=== PATIENT | male | born 1940 | race Caucasian/White ===

== ENCOUNTER 2024-03-24 08:53 | Outpatient (CLI) | payer MEDICARE, OTHER, SELFPAY ==
--- OUTSIDE RECORDS SUMMARY | 2024-03-23 16:01 | XMS_ITS | Referral Summary ---
Author Organization [facility] Address [address] [place] [address] Care Team Providers Care Head Cashier Name Role Phone Mary Nichols APRN, C.N.P., M.S.N. Primary Ca re Provider Source Comments Patient records contain information from all sites at [facility]. For routine questions regarding patient records, call [phone] during business hours, M-F 8:00 AM - 5:00 PM Central Time. Record requests for emergency care only can be directed to [phone] at any time.[facility] Encounters Date Type Department Care Team Description 02/24/2024 Orders Only [facility] HL[facility] MNT Mary Nichols APRN, C.N.P., M.S.N. 02/12/2024 Refill Department of Family Medicine, [facility], in [place] [address] [place] [address] Mary Nichols APRN, C.N.P., M.S.N. Med Refill from Last 3 Months Allergies No known active allergies Medications pravastatin (PRAVACHOL) 40 mg tablet TAKE 1 TABLET (40 MG TOTAL)BY MOUTH AT BEDTIME. PLEASEREFILL UPON PATIENT'S REQUEST. 90 tablet 3 4 Active metFORMIN XR (GLUCOPHAGE-XR) 500 mg 24 hr tablet take 1 tablet by mouth twice a day with meals 180 tablet 3 4 Active PARoxetine (PaxiL) 10 mg tablet Take 1 tablet (10 mg total) by mouth daily. 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 Anxiety 06/06/2010 Hypertension Essential Primary 07/18/2009 Overview (08/11/2016): HTN [Hypertension] Hyperlipidemia 07/18/2009 Resolved Problems Problem Noted Date Diagnosed Date Resolved Date Hyperglycemia 08/23/2017 01/27/2019 Dyspnea NOS 04/01/2012 01/07/2021 Immunizations Name Administration Dates Next Due H1N1 All Forms 04/10/2009 Influenza TIV (IM) 04/22/2018 Influenza high dose QV(65 ye ars or older) (PF) 04/23/2023,01/16/2022,01/13/2021,2019 Influenza, Seasonal, Injectable 01/27/20 12,12/01/2010,02/22/2010,2008 Influenza, Unspecified 12/21/2016,2015,02/05/2015,2013,02/03/2013,01/27/2012,01/15/2011,1 04/25/2009,03/05/2009,01/08/2009 PCV13 12/21/2016 PPSV23 01/08/2009 RZV (SHINGRIX) 06/04/2023(Deferred: Patient aysha murphy) SARS-COV-2 (COVID-19) - MODE RNA (12 YEARS AND OLDER) Fall Seasonal 06/04/2023(Deferred: Patient Refused) SARS-COV-2 (COVID-19) - MODERNA(Discontinued) 06/25/2020,05/23/2020 Td (Adult), adsorbed 09/10/2009 Td Preservative Free (TENIVA C, DECAVAC) 09/10/2009 Tdap 01/22/2016 influenza trivalent high dos e (HD)(PF) 12/22/2018,12/21/2016,01/30/2016,2014 Social History Tobacco Use Types Packs/Day Years Used Date Smoking Tobacco: Never Smokeless Tobacco: Never Tobacco Cessation:Counseling Given: Not Answered Alcohol Use Standard Drinks/Week Comments Yes 0 (1 standard drink = 0.6 oz pur e alcohol) PHQ-2 Answer Date Recorded PHQ-2 Score 0 04/23/2023 Nutrition Answer Date Recorded Nutrition: EVOO Fat Source 13 12/04 Nutrition: Servings of Fruits/Vegetables per Day Not on file 12/05/2019 Dental Answer Date Recorded Dental: Regular Dentist Unknown 05/14/19 21 Sex and Gender Information Value Date Recorded Sex Assigned at Not on file Legal Sex Male 2:57 AM ENGRAVER STEEL PLATE Gender Identity Not on file Sexual Orientation Not on file Last Filed Vital Signs Vital Sign Reading Time Taken Comments Blood Pressure 124/74 12/10/2023 10:22 AM CDT Pulse 63 12/10/2023 10:22 AM CDT Temperature 36.5 C (97.7 F) 12/10/2023 10:22 AM CDT Respiratory Rate 20 11/27/2023 7:19 AM CDT Oxygen Saturation 97% 11/27/2023 7:45 AM CDT Inhaled Oxygen Concentration - - Weight 80.1 kg (176 lb 9.4 oz) 12/10/2023 10:22 AM CDT Height 160 cm (5' 2.99) 06/04/2023 9:41 AM CDT Body Mass Index 31.29 06/04/2023 9:41 AM CDT Plan of Treatment Upcoming Encounters Date Type Department Care Team (Late st Contact Info) Description 04/04/2024 10:30 AM ENGRAVER STEEL PLATE Office Visit Department of Family Medicine, [facility], in [place], [place] [address] [place] [phone] Lacy Thompson APRN, C.N.P., M.S.N. [address] [place] [phone] Discharge Disposition: Home or Self Care Procedures Procedure Name Priority Date/Time Associated Diagnosis Comments ALBUMIN, RANDOM, U Routine 12/10/2023 11 :47 AM CDT Diabetes Mellitus Type 2 Without Complication (HCC) Hypertension Essential Primary HEMOGLOBIN A1C, B Routine 12/10/2023 11: 01 AM CDT Diabetes Mellitus Type 2 Without Complication (HCC) BASIC METABOLIC PANEL, S/P Routine 12/10/2023 11:01 AM CDT Diabetes Mellitus Type 2 Without Complication (HCC) Hypertension Essential Primary from Last 3 Months or Most Recently Relevant to Health Maintenance Results * Albumin, Random, Urine (12/10/2023 11:47 AM CDT) Albumin, Random, U <5.0 mg/L 2023 4:35 PM CDT [facility] Comment: ----ADDITIONAL INFORMATION---- This test has been modified from the underwriting technician's instructions. Its performance characteristics were determined by [facility] in a manner consistent with CLIA requirements. This test has not been cleared or approved by the U.S. Food and Drug Administration. Creatinine 73 mg/dL 12/10/2023 4:35 PM CDT [facility] Albumin/Creatinine Ratio <7 <17 mg/g 12/10/2023 4:35 PM CDT [facility] Comment: This ratio may not correspond with the reference range because one or both of the values used to calculate the ratio was above or below the quantification limits. Urine (Urine, Voided) 12/10/2023 11:47 AM CDT 12/10/2023 3:51 PM CDT us Mary Nichols APRN, C.N.P., M.S.N. LAB URINE O RDERABLES Final Result [facility] [address] [place] [id number], [facility] in [address] [address] * (ABNORMAL) Hemoglobin A1c (12/10/2023 11:01 AM CDT) Hemoglobin A1c, B 6.6(H) 4.2 - 5.6 % 12/10/2023 11:17 AM CDT [facility] Comment: Hemoglobin A1c values greater than or equal to 6.5 percent are diagnostic for diabetes mellitus. Diagnosis should be confirmed by repeat testing. In diabetic patients, HbA1c goals should be discussed with healthcare provider. Blood (Blood, Venous) 12/10/2023 11:01 AM CDT 12/10/2023 11:01 AM CDT Jose Carlos Mckeon APRNNIsma., M.S.N. LAB BLOOD A DD-ON Final Result [facility] [address] [place] [address], [facility] in [address] [address] * (ABNORMAL) Basic Metabolic Panel (12/10/2023 11:01 AM CDT) Potassium, P 5.3(H) 3.6 - 5.2 mmol/L 12/10/2023 11:23 AM CDT [facility] Sodium, P 135 135 - 145 mmol/L 12/10/2023 11:23 AM CDT [facility] Chloride, P 103 98 - 107 mmol/L 12/10/2023 11:23 AM CDT [facility] Bicarbonate, P 25 22 - 29 mmol/L 12/10/2023 11:23 AM CDT [facility] Anion Gap, P 7 7 - 15 12/10/2023 11:23 AM CDT [facility] BUN (Blood Urea Nitrogen), P 29(H) 8 - 24 mg/dL 12/10/2023 11:23 AM CDT [facility] Creatinine 1.22 0.74 - 1.35 mg/dL 12/10/2023 11:23 AM CDT [facility] Estimated GFR (eGFR) 58(L) >=60 mL/min/BSA 12/10/2023 11:23 AM CDT [facility] Comment: Estimated GFR calculated using the 2020 CKD_EPI creatinine equation. Calcium, Total, P 9.7 8.8 - 10.2 mg/dL 12/10/2023 11:23 AM CDT [facility] Glucose, P 140 70 - 140 mg/dL 12/10/2023 11:23 AM CDT [facility] Blood (Blood, Venous) 12/10/2023 11:01 AM CDT 12/10/2023 11:01 AM CDT Jose Carlos Mckeon APRNNIsma., M.S.N. LAB BLOOD A DD-ON Final Result [facility] [address] [place] [address] [place] [address], [facility] in [place] [address] [place] [address] [place] [address] from Last 3 Months or Most Recently Relevant to Health Maintenance Insurance [employer]ICA MEDICARE Care Teams Head Cashier Relationship Specialty Start Date End Date Mary Nichols APRN, C.N.P., M.S.N. [address] [place] [address] NIESHA Toth [phone] PCP - General Family Medicine 01/27/19
--- OUTSIDE RECORDS SUMMARY | 2024-03-23 16:01 | XMS_ITS | Clinical Summary ---
Author Organization [facility] Address [place], [place] [address] Care Team Providers Care Comic Book Writer Name Role Phone Braden Couch MD Primary Care Provider [phone] Allergies No known active allergies Medications lisinopril (PRINIVIL; ZESTRIL) 20 mg tabletIndicati ons:hypertensi on Take 20 mg by mouth once daily. 0 02/06/20 15 Active pravastatin (PRAVACHOL) 80 mg tabletIndicati ons:hyperlipid emia Take 80 mg by mouth at bedtime. 0 02/06/20 15 Active omeprazole (PRILOSEC) 40 mg Delayed-Releas e capsuleIndicat ions:gastroeso phageal reflux disease Take 1 capsule by mouth. 06/30/19 17 Active metFORMIN (GLUCOPHAGE XR) 500 mg Extended-Relea se tablet Take 500 mg by mouth two times daily with meals. Active escitalopram oxalate (LEXAPRO) 10 mg tabletIndicati ons:generalize d anxiety disorder Take 10 mg by mouth. 06/08/19 18 024 Discontin ued(*Leonor ent states no longer taking) HYDROcodone-ac etaminophen, 5-325 mg, (NORCO) per tabletIndicati ons:Post-op pain Take 1 tablet by mouth every 6 hours if needed for Pain Max acetaminophen dose: 4000 mg in 24 hrs. 16 tablet 08/26/19 18 024 Discontin ued(*Leonor ent states no longer taking) Active Problems Problem Noted Date Diagnosed Date Hypertension 02/05/2015 Encounters Date Type Department Care Team Description 03/07[facility]2024 [facility] [address] [place] [address] Tasha Mccarthy NP Appointment Request 03/06/2024 12:15 PM FINAL ASSEMBLER BOAT Office Visit [facility] [address] [place] [address] Marian Ivey NP Skin Problem 03/06/2024 Travel from Last 3 Months Family History * Patient is adopted Relation Name Status Comments Father Mother Social History Tobacco Use Types Packs/Day Years Used Date Smoking Tobacco: Never Smokeless Tobacco: Never Tobacco Cessation:Counseling Given: No Alcohol Use Standard Drinks/Week Comments Yes 10 (1 standard drink = 0.6 oz pu re alcohol) beer, everyday Sex and Gender Information Value Date Recorded Sex Assigned at Not on file Legal Sex Male 5:22 AM FINAL ASSEMBLER BOAT Gender Identity Not on file Sexual Orientation Not on file Obstetrics History Last Filed Vital Signs Vital Sign Reading Time Taken Comments Blood Pressure 116/62 03/06/2024 12:28 PM FINAL ASSEMBLER BOAT Pulse 92 03/06/2024 12:28 PM FINAL ASSEMBLER BOAT Temperature 36.1 C (97 F) 03/06/2024 12:28 PM FINAL ASSEMBLER BOAT Respiratory Rate 18 03/06/2024 12:28 PM FINAL ASSEMBLER BOAT Oxygen Saturation 95% 03/06/2024 12:56 PM FINAL ASSEMBLER BOAT Inhaled Oxygen Concentration - - Weight 80.3 kg (177 lb) 03/06/2024 12:28 PM FINAL ASSEMBLER BOAT Height 165 cm (5' 4.96) 08/25/2017 7:28 AM CDT Body Mass Index 29.49 08/25/2017 7:28 AM CDT Plan of Treatment Health Maintenance Due Date Last Done Comments Tdap 1949 Depression screening for age 12+ 1950 BMI (ht and wt on same day) for age 18+ 1956 Tetanus booster 1958 Pneumococcal series for age 50+ (1 of 1 - PCV) 1988 Zoster (shingles) series for age 50+ (1 of 2) 1988 Medicare Wellness for age 65+ 2003 RSV vaccine for adults or pr egnancy (1 - 1-dose 75+ series) 2013 COVID-19 vaccine series ( season) 2023 01/28/2021, 06/25/2020, 05/23/2020 Influenza for age 65+ 11/21/2023 Insurance MEDICARE PART B HB ONLY MEDICA PRIME SOLUTION HB [id number] MR PB ONLY WORKERS COMP Advance Directives * Full Code (Latest Code Status on File) Date Activated Date Inactivated Comments 08/25/2017 7:07 AM 08/25/2017 2:22 PM Care Teams Comic Book Writer Relationship Specialty Start Date End Date Braden Couch MD [address] [place] [address] PCP - General Surgery - Urology 08/25/17
--- OUTSIDE RECORDS SUMMARY | 2024-03-23 16:01 | XMS_ITS | Encounter Summary ---
Author Organization [facility] Address [address] [place] [address] Care Team Providers Care Quality Assurance Tech Name Role Phone Mary Nichols APRN, C.NJad, M.S.N. Primary Ca re Provider Reason for Visit * Reason Comments Med Refill Encounter Details Date Type Department Care Team (Late st Contact Info) Description 02/12/2024 Refill Department of Family Medicine, [facility], in [place], [place] [address] [place] [phone] Mary Nichols APRN, C.N.P., M.S.N. [address] [place] [phone] Med Refill Social History Tobacco Use Types Packs/Day Years Used Date Smoking Tobacco: Never Smokeless Tobacco: Never Alcohol Use Standard Drinks/Week Comments Yes 0 [...] on file Legal Sex Male 2:57 AM MAT CUTTER Gender Identity Not on file Sexual Orientation Not on file documented as of this encounter Plan of Treatment Upcoming Encounters Date Type Department Care Team (Late Contact Info) Description 04/04/2024 10:30 AM MAT CUTTER Office Visit Department of Family Medicine, [facility], in [place], [place] [address] [facility] [place] [place] [address] Lacy Thompson APRN, C.N.P., M.S.N. [address] [place] [address], [place] [address] Discharge Disposition: Home or Self Care documented as of this encounter Visit Diagnoses Not on filedocumented in this encounter Additional Health Concerns Assessment Noted Time PHQ-9 Depression Total Score: 0 12/22/19 19 9:20 AM CDT documented as of this encounter Care Teams Quality Assurance Tech Relationship Specialty Start Date End Date Mary Nichols APRN, C.N.P., M.S.N. [address] [place] [address], [place] [address] PCP - General Family Medicine 01/27/19 documented as of this encounter
--- OUTSIDE RECORDS SUMMARY | 2024-03-23 16:01 | XMS_ITS | Encounter Summary ---
Author Organization [facility] Address [address] [place] [address] Care Team Providers Care Supervisor Crack Off Name Role Phone Mary Nichols APRN, C.N.P., M.S.N. Primary Ca re Provider Reason for Referral * Outpatient (Routine) - Authorized Specialty Diagnoses / Procedures Referred By Contac t Referred To Contact Family Medicine Mary Nichols APRN, C.N.P., M.S.N. [address] [place] [address] Phone: tel: fax: [facility] Region Referral ID Status Reason Start Date Expiration Date V isits Requested Visits Authorized [id number] Authorized 02/24/2024 08/25/2025 1 1 Scheduling Instructions Nurse AWV Do not schedule prior to due date to ensure insurance coverage Visit: Medicare Annual Wellness Never done. AL HYGIENE ADMINISTRATIVE ASSISTANT Encounter Details Date Type Department Care Team ([facility] st Contact Info) Description 02/24/2024 Orders Only [facility] PCP HLTH MNT Mary Nichols APRN, C.NJad, M.S.N. [address] [place] [address] Social History Tobacco Use Types Packs/Day Years [...] on file Legal Sex Male 2:57 AM DENTAL HYGIENE ADMINISTRATIVE ASSISTANT Gender Identity Not on file Sexual Orientation Not on file documented as of this encounter Plan of Treatment Upcoming Encounters Date Type Department Care Team (Late st Contact Info) Description 04/04/2024 10:30 AM DENTAL HYGIENE ADMINISTRATIVE ASSISTANT Office Visit Department of Family Medicine, [facility], in [place], [place] [address] [place] [address] Lacy Thompson APRN, C.N.P., M.S.N. [address] [place] [phone] Discharge Disposition: Home or Self Care Scheduled Referrals Name Type Priority Associated Diagnoses Orde r Schedule Family Medicine nurse visit (clinic) Outpatient Referral Routine Expected: 03/23/2024, Expires: 08/22/2024 documented as of this encounter Visit Diagnoses Not on filedocumented in this encounter Additional Health Concerns Assessment Noted Time PHQ-9 Depression Total Score: 0 12/22/19 19 9:20 AM CDT documented as of this encounter Care Teams Supervisor Crack Off Relationship Specialty Start Date End Date Mary Nichols APRN, C.N.P., M.S.N. [address] [place] [phone] PCP - General Family Medicine 01/27/19 documented as of this encounter
--- OUTSIDE RECORDS SUMMARY | 2024-03-23 16:01 | XMS_ITS ---
Author Organization [facility] Address [address] [place] [address] Care Team Providers Care Supervisor Denture Department Name Role Phone Unavailable Unavailable Unavailable Surgery Details Not on file Complications Check Surgery Details section. Procedure Estimated Blood Loss Check Surgery Details section. Procedure Findings Check Surgery Details section. Procedure Specimens Taken Check Surgery Details section.
--- OUTSIDE RECORDS SUMMARY | 2024-03-23 16:01 | XMS_ITS | Clinical Summary ---
Author Organization [facility] Address [address] [place] [address] Care Team Providers Care Kindergarten Assistant Name Role Phone Mary Nichols APRN C.N.Brooklynn, M.S.N. Primary Ca re Provider Source Comments Patient records contain information from all sites at [facility]. For routine questions regarding patient records, call [phone] during business hours, M-F 8:00 AM - 5:00 PM Central Time. Record requests for emergency care only can be directed to [phone] at any time.[facility] Allergies No known active allergies Medications pravastatin [...] Hyperglycemia 08/23/2017 01/27/2019 Dyspnea NOS 04/01/2012 01/07/2021 Encounters Date Type Department Care Team Description 02/24/2024 Orders Only [facility] PCP HLTH MNT Mary Nichols APRN, C.N.P., M.S.N. 02/12/2024 Refill Department of Family Medicine, [facility], in [place] [address] [place] [place] [phone] Mary Nichols APRN, C.N.P., M.S.N. Med Refill from Last 3 Months Immunizations Name Administration Dates Next Due H1N1 All Forms 04/10/2009 Influenza TIV (IM) 04/22/2018 Influenza high dose QV(65 ye ars or older) (PF) 04/23/2023,01/16/2022,01/13/2021,2019 Influenza, Seasonal, Injectable 01/27/20 12,12/01/2010,02/22/2010,2008 Influenza, Unspecified 12/21/2016,2015,02/05/2015,2013,02/03/2013,01/27/2012,01/15/2011,1 04/25/2009,03/05/2009,01/08/2009 PCV13 12/21/2016 PPSV23 01/08/2009 RZV (SHINGRIX) 06/04/2023(Deferred: Patient dec isi) SARS-COV-2 (COVID-19) - MODE RNA (12 YEARS AND OLDER) Fall Seasonal 06/04/2023(Deferred: Patient Refused) SARS-COV-2 (COVID-19) - MODERNA(Discontinued) 06/25/2020,05/23/2020 Td (Adult), adsorbed 09/10/2009 Td Preservative Free (TENIVA C, DECAVAC) 09/10/2009 Tdap 01/22/2016 influenza trivalent high dos e (HD)(PF) 12/22/2018,12/21/2016,01/30/2016,2014 Family History Medical History Relation Name Comments Heart disease Sister Relation Name Status Comments Sister Social History Tobacco Use Types Packs/Day Years [...] on file Legal Sex Male 2:57 AM SENIOR GIS ANALYST Gender Identity Not on file Sexual Orientation [...] st Contact Info) Description 04/04/2024 10:30 AM SENIOR GIS ANALYST Office Visit Department of Family Medicine, [facility], in [place], [place] [address] [place] [phone] Lacy Thompson, KECIA, C.N.P., M.S.N. [address] [place] [phone] Discharge Disposition: Home or Self Care Health Maintenance Due Date Last Done Comments Visit: Medicare Annual Wellness 1938 Zoster Vaccines (1 of 2) 1988 Hepatitis B Vaccines (1 of 3 - Risk 3-dose series) 1998 RSV vaccine - (32-36 weeks) or 60+ years (1 - 1-dose 75+ series) 2013 COVID-19 Vaccine ( - 2023- season) 2023 01/28/2021, 06/25/2020, 05/23/2020 Influenza Vaccine (#1) 2023 , 01/16/2022, 01/13/2021, Additional history exists Diabetic Office Visit with Foot Exam 04/23/2024 04/23/2023, 04/22/2022, 06/28/2020, Additional history exists Hemoglobin A1C 06/08/2024 12/10/2023, 02/0 03/2023, 10/19/2022, Additional history exists Dilated Eye Exam 11/01/2024 11/02/2023 (Per formed elsewhere), 05/10/2018 (Performed elsewhere) Creatinine Level (Kidney Function Test) 12/09/2024 12/10/2023, 04/22/2023, 12/05/2022, Additional history exists Office Visit for Blood Pressure Check / Re-check 12/09/2024 12/10/2023 Potassium Level 12/09/2024 12/10/2023, 02/0 03/2023, 12/05/2022, Additional history exists Sodium Level 12/09/2024 12/10/2023, 02/0 03/2023, 12/05/2022, Additional history exists Urine Albumin 12/09/2024 12/10/2023, 02/0 03/2023, 04/22/2022, Additional history exists Visit: Chronic Disease, age 18+ 12/09/2024 12/10/2023, 04/23/2023 DTaP,Tdap,and Td Vaccines (2 - Td or Tdap) 01/21/2026 01/22/2016, 09/10/2009, 09/10/2009 Pneumococcal vaccine (50+ years) Completed 12/21/2016, 01/08/2009 Depression Screening (Annual PHQ-2) Completed 04/23/2023, 04/23/2023 Fall Risk Screen (Annual) Completed 04/23/2023 IPV Vaccines Aged Out No longer eligi ble based on patient's age to complete this topic Procedures Procedure Name Priority Date/Time Associated Diagnosis [...] This test has been modified from the slot editor's instructions. Its performance characteristics were determined by [facility] in a manner consistent with CLIA requirements. [...] O RDERABLES Final Result [facility] [address] [place] [address], [facility] in [place] [address] [place] [id number] * (ABNORMAL) Hemoglobin A1c (12/10/2023 11:01 AM [...] 11:01 AM CDT 12/10/2023 11:01 AM CDT us Mary Nichols APRN C.N.P., M.S.N. LAB BLOOD A DD-ON Final Result [facility] [address] [place] [id number], [facility] in [address] [address] * (ABNORMAL) Basic Metabolic Panel (12/10/2023 11:01 [...] 11:01 AM CDT 12/10/2023 11:01 AM CDT Luh Mckeon APRN.N.PAbigail, M.S.N. LAB BLOOD A DD-ON Final Result [facility] [address] [place] [address], [facility] in [address] [address] from Last 3 Months or Most Recently Relevant to Health Maintenance Insurance [employer] MEDICARE Care Teams Kindergarten Assistant Relationship Specialty Start Date End Date Mary Nichols APRN, Luh.N.P., M.S.N. [address] [place] [phone] PCP - General Family Medicine 01/27/19
== END 2024-03-24 08:54 | disposition home or self-care (01) ==
LOC: WOUND 08:54
PROVIDERS: PCP Specialist; Visit Provider Nurse Practitioner Family
DX: L89.151 Pressure ulcer of sacral region, stage 1 (principal)
CPT/HCPCS: G0463